=== PATIENT | male | born 1980 | race Caucasian/White ===

== ENCOUNTER → 2024-05-13 07:07 | Outpatient (CLI) | payer OTHER, SELFPAY ==
--- NOTE | 2024-05-13 07:37 | DI.MRI.S_ITS ---
PROCEDURE: MR CERVICAL SPINE WO/W CON INDICATIONS: PARESTHESIA OF SKIN, right hand TECHNIQUE: Noncontrast sagittal T1 spin echo and T2 fast spin echo, sagittal STIR, foraminal oblique sagittal T2 fast spin echo, axial gradient echo or T2 fast spin echo through the cervical spine. After the administration of contrast, axial and sagittal T1 spin echo with fat saturation through the cervical spine. COMPARISON: None. FINDINGS: Image quality: Excellent. Alignment and curvature: There is normal bony alignment. Marrow: Marrow is normal in overall signal, without suspicious enhancement. Spinal cord: Visualized spinal cord has normal size and signal. No cerebellar tonsillar herniation. No abnormal intramedullary enhancement. Paraspinous soft tissues: No paravertebral masses or suspicious enhancement. C2-3: Moderate disc desiccation. No significant canal nor foraminal stenosis. C3-4: Moderate disc desiccation. No significant canal stenosis. Mild bilateral foraminal stenosis. C4-5: Normal appearance. C5-6: Mild disc desiccation and diffuse disc bulge. Mild facet and uncovertebral hypertrophy. Mild canal stenosis. Mild bilateral foraminal stenosis. C6-7: Mild disc desiccation and diffuse disc bulge with superimposed broad-based right posterolateral protrusion. Mild bilateral facet and uncovertebral hypertrophy. Mild canal stenosis. Moderate to severe bilateral foraminal stenosis associated with mild bilateral C7 nerve root compression. C7-T1: Mild facet and uncovertebral hypertrophy bilaterally. No significant canal stenosis. Mild to moderate bilateral foraminal stenosis. IMPRESSION: 1. No evidence of multiple sclerosis. 2. Multilevel degenerative disc and facet disease, as well as uncovertebral hypertrophy. 3. Mild multilevel canal stenoses. 4. Multilevel foraminal stenoses, worst at C6-C7 where there is associated intraforaminal nerve root compression. Recommend correlation with clinical symptoms to ascertain relevance of this finding. Dictated by: Lety Candelaria M.D. on 05/13/2024 at 14:25 Approved by: Lety Candelaria M.D. on 05/13/2024 at 14:31
== END ==
PROVIDERS: Referring Provider Psychiatry & Neurology Neurology; Visit Provider Psychiatry & Neurology Neurology
DX: M48.02 Spinal stenosis, cervical region (principal); M47.812 Spondylosis without myelopathy or radiculopathy, cervical region; M50.322 Other cervical disc degeneration at C5-C6 level; R20.2 Paresthesia of skin
CPT/HCPCS: 72156; A9579